=== PATIENT | female | born 1945 | race Caucasian/White ===

== ENCOUNTER 2017-06-21 11:06 | Observation (INO) | payer MEDICARE, BC ==
[2017-06-21] MEDS ORDERED: ENOXAPARIN SODIUM 40 MG/0.4 ML SYRG SC SCH (14:45)
[2017-06-21 15:00] LABS: Prothrombin Time (Patient) 9.8 Seconds (9.0-11.0)
[2017-06-21 15:01] LABS: INR 0.98 INR (0.90-1.10)
[2017-06-21] MEDS: ENOXAPARIN SODIUM 60 MG/0.6 ML SYRG SC SCH (16:20)
--- NOTE | 2017-06-21 16:30 | PN ---
Progess Note - Interim Narrative: 06/21/17 16:22 I saw and examined this patient on 06/21/2017. I had discussed this case with GENE Bernard. I agree with her narrative and plan. Will start her on therapeutic Lovenox and Warfarin for her P.E. We discussed the newer anticoagualtion agents and she prefers to be on the former. We will hold her Estradiol vagifem . She does have a h/o breast cancer which increase her risk for blood clot. 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 She does give a h/o of a severe left leg pain last week but which got better on its own. Will get a venous US of that leg. If she remains hemodynamically stable tonight , will discharge her and treat her on outpatient basis. We will use the [facility] visit record for our H & P.
[2017-06-21] MEDS ORDERED: ACETAMINOPHEN WITH CODEINE 1 EACH TABLET PO PRN (16:31)
[2017-06-21] MEDS ORDERED: WARFARIN SODIUM 5 MG TABLET PO SCH (17:00)
[2017-06-21] MEDS: METOPROLOL SUCCINATE 100 MG TABLET.SA PO SCH (20:22)
[2017-06-21] MEDS ORDERED: SIMVASTATIN 10 MG TABLET PO SCH (21:00)
[2017-06-22] MEDS: ENOXAPARIN SODIUM 60 MG/0.6 ML SYRG SC SCH (03:46)
[2017-06-22] MEDS ORDERED: LEVOTHYROXINE SODIUM 50 MCG TABLET PO SCH (07:00)
[2017-06-22] MEDS: METOPROLOL SUCCINATE 100 MG TABLET.SA PO SCH (08:42)
[2017-06-22] MEDS ORDERED: CHOLECALCIFEROL 1,000 UNIT CAPSULE PO SCH (09:00)
[2017-06-22] MEDS ORDERED: LOSARTAN POTASSIUM 50 MG TABLET PO SCH (09:00)
[2017-06-22] MEDS ORDERED: FUROSEMIDE 20 MG TABLET PO SCH (09:00)
[2017-06-22] MEDS ORDERED: DILTIAZEM HCL 120 MG CAP.SR.24H PO SCH (09:00)
[2017-06-22] MEDS ORDERED: LACTOBACILLUS ACIDOPHILUS 100 CAP BTL PO SCH (09:00)
--- NOTE | 2017-06-22 09:26 | DS ---
(1) Acute pulmonary embolism Problem: Acute (2) Chest pain Problem: Acute (3) Diabetes mellitus type 2 in obese Problem: Chronic (4) Hypertension Problem: Chronic Qualifiers: Hypertension type: essential hypertension Qualified Code(s): I10 - Essential (primary) hypertension (5) Combined hyperlipidemia Problem: Acute (6) History of breast cancer Problem: Chronic Description of Stay: Timmy Sommer, is a 71-year-old white female, with previous medical history of breast cancer status post mastectomy with lymphedema, diabetes mellitus type 2, hypertension, hyperlipidemia, hypothyroidism, who was admitted on 06/21/2017 because of chest pain. One day prior to admission, the patient noticed left sided chest pain, described as sharp , 5-6/10, radiating to her axillary region and then into her back. It was constant. It was not associated with nausea, vomiting, or diaphoresis. It did not radiate to her upper extremities. The pain did not get better and so she went to the walk-in clinic. In the walk-in clinic, her workup showed that she had an elevated d-dimer and so a CT scan of the chest following pulmonary embolism protocol was done. She was found to have small pulmonary embolus on her left lingular area. She was then admitted for observation. She was started on therapeutic Lovenox and Coumadin. Her INR this morning was 1 from 0.98 on admission. She remained hemodynamically stable overnight. She will now be discharge to be treated on outpatient basis with Lovenox and Coumadin until therapeutic levels are reached. She is going to follow-up with Coumadin clinic and will be discharge on 7.5 mg of Coumadin from 5 mg. We will recheck her INR on Tuesday. She is going to call Dr. De La Paz to see what can be used in replacement of her estradiol Vagifem. Procedures Performed: none Discharge Disposition: Home self care Disposition: Home self-care Condition: Good Discharge Activity: Activity as tolerated Discharge Diet: Consistent carbs Referrals: Patric Iraheta MD [Primary Care Provider] - Additional Patient Instructions (free text): Please make TCM appointment at discharge, if applicable. Thank you! [phone].(Notified) Follow up with Dr. Iraheta on 06-24-17 @ 11:00am. Go to [facility] after your appointment with Dr Iraheta for your INR and to meet with Michelle regarding the Coumadin Clinic. Prescriptions (Any new or edited meds): Acetaminophen 500 mg PO QID PRN #30 tablet PRN Reason: Pain/Fever Enoxaparin Sodium [Lovenox] 120 mg SQ BID 1 Days #8 syringe Warfarin Sodium [Coumadin] 7.5 mg PO DAILY@1700 #30 tablet Complete Home Medications List: Complete Home Medication List: Levothyroxine Sodium [Synthroid] 50 mcg PO DAILY 06/26/14 Metoprolol Succinate [Toprol Xl] 100 mg PO DAILY 06/26/14 Omeprazole Magnesium 40 mg PO DAILY 06/26/14 Calcium 06/21/17 Cholecalciferol (Vitamin D3) [Vitamin D3] 1,000 unit PO DAILY 06/21/17 Diltiazem HCl [Diltiazem 24Hr Cd] 120 mg PO DAILY 06/21/17 Furosemide [Lasix] 20 mg PO DAILY 06/21/17 Lactobacillus Combination No.4 [Probiotic] 2 each PO DAILY 06/21/17 Losartan Potassium [Cozaar] 50 mg PO DAILY 06/21/17 Simvastatin [Zocor] 10 mg PO DAILY 06/21/17 Acetaminophen 500 mg PO QID PRN #30 tablet 06/22/17 Enoxaparin Sodium [Lovenox] 120 mg SQ BID 1 Days #8 syringe 06/22/17 Warfarin Sodium [Coumadin] 7.5 mg PO DAILY@1700 #30 tablet 06/22/17 Amb Orders for Discharge: Prothrombin Time Time Frame: 06/24/17, Location: Determined By Patient
[2017-06-22 10:05] VITALS: BP 150/62
== END 2017-06-22 11:25 | disposition home or self-care (01) ==
LOC: RT 11:06 → MS 14:42
PROVIDERS: ADMIT Internal Medicine; ATTEND Internal Medicine
DX: I26.99 Other pulmonary embolism without acute cor pulmonale (principal); E11.9 Type 2 diabetes mellitus without complications; I10 Essential (primary) hypertension; E78.5 Hyperlipidemia, unspecified; E03.9 Hypothyroidism, unspecified; Z85.3 Personal history of malignant neoplasm of breast; Z22.322 Carrier or suspected carrier of Methicillin resistant Staphylococcus aureus
CPT/HCPCS: 36415; 71020; 71275; 85610; 87081; 93005; 93971; 96372; G0378; G0379